=== PATIENT | female | born 1985 | race Caucasian/White ===

== ENCOUNTER 2017-04-04 13:33 | Emergency (ER) | payer SELFPAY ==
[2017-04-04 13:57] VITALS: BP 123/78
--- NOTE | 2017-04-04 14:04 | UC ---
Eye Complaint HPI - HPI Summary HPI Summary: right eye redness, swollen, discharge no eye pain , no photophobia , no change in vision - History of Current Complaint Chief Complaint: UCEye Stated Complaint: RIGHT EYE COMPLAINT Time Seen by Provider: 04/04/17 13:54 Hx Obtained From: Patient Hx Last Menstrual Period: 03/13/17 ?: No Onset/Duration: Gradual Onset, Lasting Days - 1, Still Present Severity Initially: Moderate Severity Currently: Moderate Location of Injury: Conjunctiva - right Aggravating Factor(s): Blinking Alleviating Factor(s): Nothing Associated Signs And Symptoms: Positive: Drainage (Purulent) - right. Negative : Photophobia, Vision Impairment Bilateral, Vision Impairment Right, Vision Impairment Left - Allergies/Home Medications Allergies/Adverse Reactions: Allergies Allergy/AdvReac Type Severity Reaction Status Date / Time Erythromycin AdvReac Intermediate GI Upset Verified 04/04/17 13:57 Home Medications: Home Medications Diphenhydramine HCl [Benadryl Allergy 25 MG TAB] 50 mg PO PRN 04/04/17 [History] PMH/Surg Hx/FS Hx/Imm Hx Respiratory History Of: Reports: Asthma - Surgical History Surgical History: None - Family History Known Family History: Negative: Diabetes - Social History Alcohol Use: Weekly Substance Use Type: None Smoking Status (MU): Never Smoked Tobacco Review of Systems Constitutional: Negative Skin: Negative Eyes: Drainage - right, Eye Redness - right ENT: Negative Respiratory: Negative Cardiovascular: Negative Gastrointestinal: Negative All Other Systems Reviewed And Are Negative: Yes Physical Exam Triage Information Reviewed: Yes Appearance: Well-Appearing, No Pain Distress, Well-Nourished Vital Signs: Initial Vital Signs Temp 97.6 F 04/04/17 13:52 Pulse 88 04/04/17 13:52 Resp 14 04/04/17 13:52 BP 123/78 04/04/17 13:52 Pulse Ox 100 04/04/17 13:52 Vital Signs Reviewed: Yes Eyes: Positive: Conjunctiva Inflamed - right eye. Negative: Discharge ENT: Positive: Normal ENT inspection, Hearing grossly normal, Pharynx normal Neck: Positive: Supple, Nontender, No Lymphadenopathy Respiratory: Positive: Chest non-tender, Lungs clear, Normal breath sounds Cardiovascular: Positive: RRR, No Murmur, Pulses Normal Skin Exam: Normal Eye Complaint Course/Dx - Differential Dx/Diagnosis Provider Diagnoses: conjunctivitis Discharge - Discharge Plan Condition: Stable Disposition: HOME Prescriptions: Tobramycin 0.3% OPHTH.JUAN C* 1 drop RIGHT EYE Q4H #1 btl Patient Education Materials: Conjunctivitis (ED) Forms: *Work Release Referrals: No Primary Care Phys,NOPCP [Primary Care Provider] - Additional Instructions: follow up if not better in 2 days, sooner if having pain, change in your vision
== END 2017-04-04 14:25 | disposition home or self-care (01) ==
LOC: UCCORT 13:33
DX: H10.31 Unspecified acute conjunctivitis, right eye (principal); J45.909 Unspecified asthma, uncomplicated; Z88.1 Allergy status to other antibiotic agents
CPT/HCPCS: 99212; G0463